=== PATIENT | female | born 1980 | race Two or more races ===

== ENCOUNTER 2023-06-25 04:54 | Inpatient (IN) | payer OTHER ==
[~2023-06-25] VITALS: Ht 152.4 cm; Wt 3.2 kg
[2023-06-25] MEDS ORDERED: PRENATAL TABLE1 EAC1 PO (05:45)
[2023-06-25] MEDS ORDERED: IRON325 MG PO (05:46)
[2023-06-25] MEDS ORDERED: NIFEDIPINE20 MG PO (05:46)
[2023-06-25] MEDS ORDERED: LOVENOX30 MG/0.3 SUBCUTANEO (05:47)
== END 2023-06-27 11:51 | disposition home or self-care (01) | DRG 785 ==
LOC: LDR 04:54 → OB/GYN 04:54 → O/R 08:38 → SURH 12:39 → OB/GYN 14:12
PROVIDERS: ADMIT Specialist; ATTEND Specialist
PROC: 0UB70ZZ Excision of Bilateral Fallopian Tubes, Open Approach (ICD-10-PCS; 2023-06-25)
PROC: 4A1HXCZ Monitoring of Products of Conception, Cardiac Rate, External Approach (ICD-10-PCS; 2023-06-25)
PROC: 10D00Z1 Extraction of Products of Conception, Low, Open Approach (ICD-10-PCS; principal; 2023-06-25 08:15)
DX: O34.211 Maternal care for low transverse scar from previous cesarean delivery (principal); Z3A.37 37 weeks gestation of pregnancy; Z37.0 Single live birth; Z20.822 Contact with and (suspected) exposure to COVID-19; Z30.2 Encounter for sterilization